=== PATIENT | male | born 1945 | race Caucasian/White ===

== ENCOUNTER 2020-12-22 11:01 | Day surgery (SDC) | payer MEDICARE, OTHER ==
[2020-12-16 13:33] LABS: BASOPHILS # (AUTO) 0.1 X10'3 (0-0.2); BASOPHILS % (AUTO) 1.1 % (0-1); EOSINOPHILS # (AUTO) 0.3 X10'3 (0-0.9); HEMATOCRIT 43.9 % (42.0-52.0); HEMOGLOBIN 14.8 g/dl (14.0-17.9); LYMPHOCYTES # (AUTO) 2.8 X10'3 (1.1-4.8); LYMPHOCYTES % (AUTO) 28.7 % (21-51); MEAN CORPUSCULAR HEMOGLOBIN 30.5 PG (27.0-31.0); MEAN CORPUSCULAR HGB CONC 33.8 g/dL (33.0-36.5); MEAN PLATELET VOLUME 8.1 FL (7.4-10.4); MONOCYTES # (AUTO) 0.9 X10'3 (0-0.9); NEUTROPHILS # (AUTO) 5.7 X10'3 (1.8-7.7); NEUTROPHILS % (AUTO) 58.2 % (42-75); PLATELET COUNT 253 X10'3 (140-440); RED BLOOD COUNT 4.87 X10'6 (4.70-6.10); RED CELL DISTRIBUTION WIDTH 14.4 % (11.5-14.5); WHITE BLOOD COUNT 9.8 X10'3 (4.5-11.0)
[2020-12-16 13:47] LABS: PARTIAL THROMBOPLASTIN TIME 28 SECONDS (22-32)
[2020-12-16 13:49] LABS: ALANINE AMINOTRANSFERASE 27 U/L (12-78); ALBUMIN 3.6 G/DL (3.4-5.0); ALBUMIN/GLOBULIN RATIO 0.9 (1.1-1.5); ALKALINE PHOSPHATASE 78 IU/L (46-116); ANION GAP 11 (8-16); ASPARTATE AMINO TRANSFERASE 19 U/L (10-37); BILIRUBIN,TOTAL 0.6 MG/DL (0.1-1.0); BLOOD UREA NITROGEN 24 MG/DL (7-18); BUN/CREATININE RATIO 17.5 (5.4-32.0); CALCIUM 8.5 MG/DL (8.5-10.1); CHLORIDE 104 MMOL/L (99-107); CREATININE 1.37 MG/DL (0.60-1.10); GLUCOSE 100 MG/DL (70-104); POTASSIUM 4.3 MMOL/L (3.5-5.1); SODIUM 141 MMOL/L (135-145); TOTAL CARBON DIOXIDE 26.2 MMOL/L (24-32); TOTAL PROTEIN 7.8 G/DL (6.4-8.2); eGFR 51 ML/MIN
[2020-12-22] VITALS (9 sets, daily range): BP systolic 113–145; BP diastolic 53–80
[~2020-12-22] VITALS: Ht 177.8 cm; Wt 126.5 kg
[2020-12-22] MEDS ORDERED: LORazepam 0.5 MG tablet PO PRN (11:20)
[2020-12-22] MEDS ORDERED: diphenhydrAMINE 25mg capsule PO PRN (11:20)
[2020-12-22] MEDS ORDERED: normal saline 1,000 ML IV SCH (11:20)
[2020-12-22] MEDS ORDERED: nitroGLYCERIN 0.4mg SUBLingual tab SL PRN (11:20)
[2020-12-22] MEDS ORDERED: ATEN50TA8 PO (11:31)
[2020-12-22] MEDS ORDERED: AMLO10TA13 PO (11:31)
[2020-12-22] MEDS ORDERED: NIFE30TA95 PO (11:31)
[2020-12-22] MEDS ORDERED: LEVO137T2 PO (11:31)
[2020-12-22] MEDS ORDERED: LOSA50TA64 PO (11:31)
[2020-12-22] MEDS ORDERED: midazolam 1 mg/ML 2ml injection ONE ×2 (13:21→14:03)
[2020-12-22] MEDS ORDERED: fentaNYL/PF 50MCG/1 ML 2ML syringe ONE (13:21)
[2020-12-22] MEDS ORDERED: iohexol 350 MG/ML 50ML vial IV ONE (13:21)
[2020-12-22] MEDS ORDERED: iohexol 350MG/ML 100ml bottle IV ONE (13:21)
[2020-12-22] MEDS ORDERED: LIDOcaine 1% (10mg/ml)w/preservative injection 20ml MDV ONE (13:21)
[2020-12-22] MEDS ORDERED: HYDROcodone/acetaminophen 5mg/325mg tablet PO PRN (14:45)
[2020-12-22] MEDS ORDERED: ondansetron/PF 4mg/2ml inj IV PRN (14:45)
[2020-12-22] MEDS ORDERED: OXAZEpam 15mg capsule PO PRN (14:45)
[2020-12-22] MEDS ORDERED: proCHLORperazine 10 MG/2 ml inj IV PRN (14:45)
[2020-12-22] MEDS ORDERED: acetaminophen 325mg tablet PO PRN (14:45)
[2020-12-22] MEDS ORDERED: HYDROcodone/acetaminophen 10/325mg tab PO PRN (14:45)
== END 2020-12-22 20:00 | disposition home or self-care (01) ==
LOC: SSTAY O 11:01
PROVIDERS: ATTEND Internal Medicine Cardiovascular Disease
DX: R94.39 Abnormal result of other cardiovascular function study (principal); I25.10 Atherosclerotic heart disease of native coronary artery without angina pectoris; E78.5 Hyperlipidemia, unspecified; I10 Essential (primary) hypertension; E03.9 Hypothyroidism, unspecified; N40.1 Benign prostatic hyperplasia with lower urinary tract symptoms; M19.90 Unspecified osteoarthritis, unspecified site; Z96.651 Presence of right artificial knee joint; Z96.641 Presence of right artificial hip joint; Z98.890 Other specified postprocedural states; Z87.891 Personal history of nicotine dependence; Z79.899 Other long term (current) drug therapy; Z79.01 Long term (current) use of anticoagulants
CPT/HCPCS: 36415; 71046; 80053; 85025; 85610; 85730; 93005; 93458; 99152; C1760; C1769; J1644; J2001; J2250; J3010; Q0163; Q9967; A4620; A6258